=== PATIENT | male | born 2000 | race Hispanic/Latino ===

== ENCOUNTER 2023-03-03 12:13 | Emergency (ER) | payer OTHER ==
[~2023-03-03] VITALS: Ht 172.7 cm; Wt 90.9 kg
[2023-03-03 17:01] VITALS: BP 139/72; TEMP 98.7; O2SAT 98
== END 2023-03-03 17:08 | disposition home or self-care (01) ==
LOC: M ED 12:13
DX: M24.411 Recurrent dislocation, right shoulder (principal); F17.200 Nicotine dependence, unspecified, uncomplicated